=== PATIENT | female | born 1960 | race Caucasian/White ===

== ENCOUNTER → 2018-06-19 | Outpatient (CLI) | payer OTHER | LOC: CIMAGING 09:32 | PROVIDERS: ATTEND Family Medicine | DX: Z12.31 Encounter for screening mammogram for malignant neoplasm of breast (principal); R92.2 Inconclusive mammogram ==

== ENCOUNTER → 2018-07-31 | Outpatient (CLI) | payer OTHER | LOC: CIMAGING 13:09 | PROVIDERS: ATTEND Registered Nurse | DX: Z03.89 Encounter for observation for other suspected diseases and conditions ruled out (principal) ==